=== PATIENT | male | born 1975 | race Caucasian/White ===

== ENCOUNTER 2021-01-17 15:51 | Outpatient (REF) | payer OTHER, SELFPAY ==
--- NOTE | ~2021-01-17 | XR_ITS ---
EXAMINATION: XR ABDOMEN COMPLETE CLINICAL INDICATION: Left lower quadrant pain. COMPARISON: None TECHNIQUE: 2 views of the abdomen. FINDINGS: Nonobstructive bowel gas pattern. Mild stool throughout the colon. No intra-abdominal free air. No abnormal soft tissue calcification. No acute osseous abnormality. XR/XR abdomen min 2V IMPRESSION: Nonobstructive bowel gas pattern.
== END 2021-01-17 15:52 | disposition home or self-care (01) ==
LOC: HO.HMGCX 15:51
PROVIDERS: PCP Internal Medicine; Visit Provider Physician Assistant Medical
DX: R10.32 Left lower quadrant pain (principal)
CPT/HCPCS: 74019